=== PATIENT | male | born 1955 | race Caucasian/White ===

== ENCOUNTER 2020-02-11 05:41 | Day surgery (SDC) | payer BC ==
[2020-02-11] MEDS ORDERED: LACTATED RINGERS 1,000 ML ONE (05:47)
[2020-02-11] MEDS ORDERED: PROPOFOL 200 MG/20 ML VIAL IV ONE (07:00)
[2020-02-11] MEDS ORDERED: LIDOCAINE 1% 10 ML VIAL INJ ONE (07:00)
--- NOTE | 2020-02-11 09:58 | OP ---
DATE OF PROCEDURE: 02/11/20 PREOPERATIVE DIAGNOSIS: 1. Iron deficiency anemia related to chronic blood loss. POSTOPERATIVE DIAGNOSIS: 1. Bleeding, angiodysplasia in the cecum. 2. Colonic diverticulosis. 3. Colon polyp. 4. Esophageal webs. PROCEDURE: 1. EGD. 2. Colonoscopy. SURGEON: Tab Lewis MD ANESTHESIA: Monitored anesthesia care. ESTIMATED BLOOD LOSS: Less than 5 mL. COMPLICATIONS: None. PROCEDURE: The patient was placed in the left lateral decubitus position. A time-out was performed. After deep sedation was achieved, the Olympus adult upper endoscope was inserted through the oropharynx and into the proximal esophagus and advanced to the second portion of the duodenum under direct visualization. The endoscope was then progressively withdrawn and the duodenum, stomach and esophageal lumen were evaluated. Retroflexion was performed in the stomach. The endoscope was then withdrawn and we proceeded with the colonoscopy. The patient's stretcher was rotated 180 degrees. A digital rectal exam was performed and was noted to be unremarkable. The Olympus adult colonoscope was inserted through the anus, into the rectum and advanced to the terminal ileum under direct visualization. The cecum was identified by the terminal ileum, ileocecal valve and the appendiceal orifice. Photodocumentation of these locations was performed. The patients bowel preparation was good. The endoscope was then progressively withdrawn and the total colonic lumen evaluated. Retroflexion was performed in the rectum. The endoscope was then withdrawn and the procedure terminated. The patient tolerated the procedure well with no immediate complications. EGD FINDINGS: 1. Esophagus: A few nonobstructing esophageal webs were noted in the mid esophagus. No biopsies were taken. 2. Stomach: The stomach was unremarkable. Retroflexion was performed. 3. Duodenum: The duodenum, including the first and second portion, was unremarkable. COLONOSCOPY FINDINGS: 1. A large actively bleeding angiodysplasia was noted in the cecum, in between the appendiceal orifice and the ileocecal valve. Submucosal injection with epinephrine was performed, a total of 3 mL of 1:10,000 concentration was injected. This resulted in improvement in bleeding, but not complete cessation. Hemoclip placement was performed x5 across the angiodysplastic lesion, resulting in successful hemostasis achieved. 2. One 4-mm sessile polyp was found in the ascending colon. This polyp was removed with a cold snare and retrieved for pathology. 3. Colonic diverticulosis was noted throughout the entire colon, most prominent in the sigmoid colon. There was no evidence of diverticulitis or bleeding. IMPRESSION: 1. Bleeding colonic angiodysplasia, status post injection with epinephrine and hemoclip placement as above with hemostasis achieved. 2. Colonic diverticulosis. 3. Colon polyp. 4. Esophageal webs. RECOMMENDATIONS: 1. Okay to discharge home once the patient meets discharge criteria. 2. Resume prior diet. 3. Resume home medications. 4. Followup in the GI clinic with Dr. Lewis in one to two months. #[id number] [facility]
[2020-02-11 10:30] VITALS: BP 179/85; TEMP 97; O2SAT 100
== END 2020-02-11 10:25 | disposition home or self-care (01) ==
LOC: AMB 05:41
PROVIDERS: ATTEND Internal Medicine Gastroenterology
DX: D50.0 Iron deficiency anemia secondary to blood loss (chronic) (principal); D12.2 Benign neoplasm of ascending colon; K57.30 Diverticulosis of large intestine without perforation or abscess without bleeding; K29.80 Duodenitis without bleeding; K55.20 Angiodysplasia of colon without hemorrhage; K22.8 Other specified diseases of esophagus; R19.5 Other fecal abnormalities; I10 Essential (primary) hypertension; Z86.010 Personal history of colon polyps; Z88.0 Allergy status to penicillin; Z79.899 Other long term (current) drug therapy
CPT/HCPCS: 00813; 43239; 45381; 45385; 88305; J3490; J7120